=== PATIENT | female | born 1940 | race Caucasian/White ===

== ENCOUNTER → 2016-06-28 | Outpatient (CLI) | payer MEDICARE ==
--- NOTE | 2016-06-28 11:37 | US ---
EXAMINATION TYPE: US kidneys/renal and bladder DATE OF EXAM: 06/28/2016 11:16 AM COMPARISON: CT in pacs CLINICAL HISTORY: R94.4 Abn Results of kidney function studies. Abnormal results of kidney function s tudies, patient states no symptoms. EXAM MEASUREMENTS: Right Kidney: 8.4 x 3.7 x 4.1 cm Left Kidney: 8.4 x 4.8 x 4.0 cm Findings: Right Kidney: appears slightly small in size at 8.4cm Left Kidney: appears slightly small in size at 8.4cm, 0.2cm echogenic focus mid pole Bladder: limited visualization, not fully distended, appears wnl at seen Bilateral Jets seen: yes There is no evidence for hydronephrosis at this point in time. Nonobstructing calculus left kidney. N o masses are identified. The urinary bladder is anechoic. Bilateral ureteral jets are seen. IMPRESSION: 1. Mild renal atrophic change. 2. Nonobstructing calculus left kidney.
== END | disposition home or self-care (01) ==
LOC: RADUSWWP 10:52
PROVIDERS: ATTEND Family Medicine
DX: N20.0 Calculus of kidney (principal); N26.1 Atrophy of kidney (terminal)
CPT/HCPCS: 76770

== ENCOUNTER → 2017-01-03 | Outpatient (CLI) | payer MEDICARE ==
--- NOTE | 2017-01-04 11:50 | MM ---
Reason for exam: screening (asymptomatic). Last mammogram was performed 8 years and 6 months ago. History: Patient is postmenopausal. 3 excisional biopsies of the right breast. Physical Findings: A clinical breast exam by your physician is recommended on an annual basis and results should be correlated with mammographic findings. MG 3D Screening Mammo W/Cad Bilateral CC and MLO view(s) were taken. Prior study comparison: July 11, 2008, bilateral digital screening mammogram. December 07, 2006, bilateral screening mammogram w/CAD. The breast tissue is heterogeneously dense. This may lower the sensitivity of mammography. There is no discrete abnormality. ASSESSMENT: Negative, BI-RAD 1 RECOMMENDATION: Routine screening mammogram of both breasts in 1 year.
== END | disposition home or self-care (01) ==
LOC: RADMAMWWP 10:53
PROVIDERS: ATTEND Family Medicine
DX: Z12.31 Encounter for screening mammogram for malignant neoplasm of breast (principal)
CPT/HCPCS: 77063; G0202

== ENCOUNTER → 2018-05-15 | Outpatient (CLI) | payer MEDICARE ==
[2018-05-15 14:51] LABS: Basophils % (A) 1 %; Eosinophils # (A) 0.2 k/uL (0-0.7); Eosinophils % (A) 4 %; HGB 11.8 gm/dL (11.4-16.0); Lymphocytes # (A) 1.3 k/uL (1.0-4.8); Lymphocytes % (A) 23 %; MCH 28.4 pg (25.0-35.0); MCHC 31.8 g/dL (31.0-37.0); MCV 89.3 fL (80.0-100.0); Mean Platelet Volume 6.3; Monocytes # (A) 0.5 k/uL (0-1.0); Monocytes % (A) 9 %; Neutrophils # (A) 3.5 k/uL (1.3-7.7); Neutrophils % (A) 61 %; Platelet Count 314 k/uL (150-450); RBC 4.14 m/uL (3.80-5.40); RDW 13.1 % (11.5-15.5); WBC 5.7 k/uL (3.8-10.6)
[2018-05-15 15:01] LABS: Albumin 4.3 g/dL (3.5-5.0); Calcium 9.4 mg/dL (8.4-10.2); Potassium 4.3 mmol/L (3.5-5.1); Total Bilirubin 0.4 mg/dL (0.2-1.3); Total Protein 7.2 g/dL (6.3-8.2)
[2018-05-15 15:17] LABS: T4, Free (Free Thyroxine) 1.01 ng/dL (0.78-2.19)
--- NOTE | 2018-05-15 16:12 | BD ---
EXAMINATION TYPE: Axial Bone Density DATE OF EXAM: CLINICAL HISTORY: Height: 64 inches Weight: 138 FRAX RISK QUESTIONS: Alcohol (3 or more units per day): no Family History (Parent hip fracture): no Glucocorticoids (More than 3mos): no (Ex: prednisone, prednisolone, methylprednisolone, dexamethasone, and hydrocortisone). History of Fracture in Adulthood: yes Secondary Osteoporosis: 1. Type 1 Diabetes: no 2. Hyperthyroidism: no 3. Menopause before 45: yes 4. Malnutrition: no 5. Chronic liver disease: no Rheumatoid Arthritis: no Current Tobacco Use: no RISK FACTORS HISTORY OF: History of Wrist Fracture: yes When: about 6 years ago Surgery to Spine/Hip(right/left)/Wrist (right/left): no Family History of Osteoporosis: no Active: yes Diet low in dairy products/other sources of calcium: no Postmenopausal woman: yes Take estrogen and/or progesterone medications: no Lost more than 2 inches in height since high school: no Frequent falls: no Poor Health: no Hyperparathyroidism: no Adrenal Insufficiency: no MEDICATIONS: Prednisone or other steroids: no Thyroid Medications: no Osteoporosis Medications: yes Which medication: Prolia How Lon shots Additional Medications: calcium & Vitamin D Additional History: EXAM MEASUREMENTS: Bone mineral densitometry was performed using the SensorTran System. Bone mineral density as measured about the Lumbar spine is: ----- L1-L4(G/cm2): 1.000 T Score Values are as follows: ----- L2: -2.6 ----- L3: -1.1 ----- L4: -0.5 ----- L1-L4: -1.5 Bone mineral density has: Increased 3.4% since study of: 08/26/2015 Bone mineral density about the R hip (g/cm2): 0.639 Bone mineral density about the L hip (g/cm2): 0.657 T Score values are as follows: -----R Neck: -2.9 -----L Neck: -2.7 -----R Total: -2.1 -----L Total: -1.9 Bone mineral density has: Increased 2.7% since study of: 08/26/2015 IMPRESSION: Osteoporosis (T Score less than -2.5). There is increased fracture risk and therapy is usually indicated based on age. Re-Screen 1-2 years. NOTE: T-SCORE=SD OF THE YOUNG ADULT MEAN.
--- NOTE | 2018-05-16 09:52 | MM ---
Reason for exam: screening (asymptomatic). Last mammogram was performed 1 year and 4 months ago. History: Patient is postmenopausal. 3 excisional biopsies of the right breast. Physical Findings: A clinical breast exam by your physician is recommended on an annual basis and results should be correlated with mammographic findings. MG 3D Screening Mammo W/Cad Bilateral CC and MLO view(s) were taken. Prior study comparison: January 03, 2017, bilateral MG 3d screening mammo w/cad. July 11, 2008, bilateral digital screening mammogram. The breast tissue is heterogeneously dense. This may lower the sensitivity of mammography. There are benign appearing vascular calcifications bilaterally. There is no discrete abnormality. ASSESSMENT: Benign, BI-RAD 2 RECOMMENDATION: Routine screening mammogram of both breasts in 1 year.
== END | disposition home or self-care (01) ==
LOC: RADMAMWWP 13:40
PROVIDERS: ATTEND Family Medicine
DX: Z12.31 Encounter for screening mammogram for malignant neoplasm of breast (principal); M81.0 Age-related osteoporosis without current pathological fracture
CPT/HCPCS: 36415; 77063; 77067; 77080; 80053; 80061; 82306; 84439; 84443; 85025

== ENCOUNTER 2018-12-27 09:51 | Emergency (ER) | payer MEDICARE ==
--- NOTE | 2018-12-27 10:10 | ED ---
General Adult HPI - General Chief complaint: Arrhythmia/Palpitations Stated complaint: Palpitations Time Seen by Provider: 12/27/18 10:05 Source: patient, RN notes reviewed Mode of arrival: ambulatory Limitations: no limitations - History of Present Illness Initial comments: 78-year-old female with a past medical history of GERD, osteoporosis, hiatal he rnia presents to the emergency department for possible arrhythmia. Patient states that for the past few weeks she has had severe anxiety and impending doom mostly occurring at night. States this occurs for a few hours and then subsides. States last night it was really bad. States that because of these episodes she had a heart monitor on for about 5 days that was started last Sunday. Patient states she had an appointment with her doctor yesterday who notified her that her heart rate gets up to 186 during these episodes. Patient states the rhythm is "tachycardia." States that she has an appointment with Dr. Dominguez on Sunday. However because of the worsening symptoms last night this in creased anxiety and she came to the emergency department for further evaluation patient denies any shortness of breath or chest pain during these episodes. Denies diaphoresis. However does admit that she believes the anxiety is secondary to the arrhythmia..Patient has no other complaints at this time including shortness of breath, chest pain, abdominal pain, nausea or vomiting, headache, or visual changes. - Related Data Home Medications Medication Instructions Recorded Confirmed Aspirin [Adult Low Dose Aspirin EC] 81 mg PO HS 09/08/15 12/17/15 Calcium Carb-Vit D 500Mg-200Un 1 tab PO HS 09/08/15 12/17/15 [Oscal 500+D] FLUoxetine HCL [PROzac] 60 mg PO HS 09/08/15 12/17/15 Omeprazole 40 mg PO HS 09/08/15 12/17/15 Allergies Allergy/AdvReac Type Severity Reaction Status Date / Time No Known Allergies Allergy Verified 12/27/18 09:56 Review of Systems ROS Statement: Those systems with pertinent positive or pertinent negative responses have been documented in the HPI. ROS Other: All systems not noted in ROS Statement are negative. Past Medical History Past Medical History: GERD/Reflux Additional Past Medical History / Comment(s): varicose veins, osteoporosis, hiatal hernia, History of Any Multi-Drug Resistant Organisms: None Reported Past Surgical History: Breast Surgery, Cholecystectomy, Tonsillectomy Additional Past Surgical History / Comment(s): 3 cysts removed from rt breast , kana cataracts, detached retina-left eye Past Anesthesia/Blood Transfusion Reactions: Motion Sickness Past Psychological History: Depression Smoking Status: Former smoker Past Alcohol Use History: None Reported Past Drug Use History: None Reported - Past Family History Mother Family Medical History: Congestive Heart Failure (CHF), Coronary Artery Disease (CAD) Additional Family Medical History / Comment(s): anxiety Father Family Medical History: Memory Impairment Daughter(s) Family Medical History: Cancer (Leiomyosarcoma) General Exam Limitations: no limitations General appearance: alert, in no apparent distress Head exam: Present: atraumatic, normocephalic, normal inspection Eye exam: Present: normal appearance, PERRL, EOMI. Absent: scleral icterus, conjunctival injection ENT exam: Present: normal exam, mucous membranes moist Neck exam: Present: normal inspection, full ROM. Absent: tenderness, meningismus, lymphadenopathy Respiratory exam: Present: normal lung sounds bilaterally. Absent: respiratory distress, wheezes, rales, rhonchi, stridor Cardiovascular Exam: Present: regular rate, normal rhythm, normal heart sounds. Absent: systolic murmur, diastolic murmur, rubs, gallop, clicks GI/Abdominal exam: Present: soft, normal bowel sounds. Absent: distended, tenderness, guarding, rebound, rigid Neurological exam: Present: alert, oriented X3, CN II-XII intact Psychiatric exam: Present: normal affect, normal mood Course Vital Signs 12/27/18 12/27/18 09:56 10:37 Temperature 98.2 F Pulse Rate 51 L Pulse Rate [ 55 L Caser ] Respiratory 18 Rate Blood Pressure 132/62 O2 Sat by Pulse 98 Oximetry - Reevaluation(s) Reevaluation #1: 12/27/18 10:44 Attempting to get rhythm strips from Dr. Parisi's office EKG Findings - EKG Comments: EKG Findings:: Sinus bradycardia, ventricular rate 55, UT interval 156, QTC 420 Medical Decision Making - Medical Decision Making 78-year-old female presents to the emergency department for chief complaint of anxiety and abnormal Holter monitor. Patient states she was told she has a heart rate of 186 at times and has an appointment with liability claims representative on Sunday. On presentation patient is well-appearing. She does appear anxious however. V itals are stable. Heart rate in the 50s. CBC CMP unremarkable. Troponin negative. TSH is normal. Urine negative. EKG shows a sinus bradycardia with a ventricular rate of 55. I did obtain a Holter monitor results from a Dr. Parisi's office which showed about 2 runs of 5 beats of possible V. tach. Patient was put on propanolol last week for this. Case was discussed with Dr. Degroot who discussed the case with Dr Ledezma and recommend outpatient treatment with cards on sunday. Family is in agreement. Safety planning was made. Patient does have a way to check her heart rate at home. Patient return if she has any worsening symptoms and will follow up with her liability claims representative on Sunday at her scheduled appointment. - Lab Data Result diagrams: 12/27/18 10:45 12/27/18 10:45 Lab Results 12/27/18 12/27/18 12/27/18 Range/Units 10:45 10:45 10:45 WBC 6.5 (3.8-10.6) k/uL RBC 4.15 (3.80-5.40) m/uL Hgb 11.8 (11.4-16.0) gm/dL Hct 35.8 (34.0-46.0) % MCV 86.3 (80.0-100.0) fL MCH 28.3 (25.0-35.0) pg MCHC 32.8 (31.0-37.0) g/dL RDW 13.9 (11.5-15.5) % Plt Count 272 (150-450) k/uL Neutrophils % 71 % Lymphocytes % 18 % Monocytes % 8 % Eosinophils % 2 % Basophils % 0 % Neutrophils # 4.6 (1.3-7.7) k/uL Lymphocytes # 1.1 (1.0-4.8) k/uL Monocytes # 0.5 (0-1.0) k/uL Eosinophils # 0.1 (0-0.7) k/uL Basophils # 0.0 (0-0.2) k/uL PT 10.2 (9.0-12.0) sec INR 0.9 (<1.2) APTT 25.1 (22.0-30.0) sec Sodium 138 (137-145) mmol/L Potassium 4.3 (3.5-5.1) mmol/L Chloride 108 H (98-107) mmol/L Carbon Dioxide 21 L (22-30) mmol/L Anion Gap 9 mmol/L BUN 14 (7-17) mg/dL Creatinine 1.02 (0.52-1.04) mg/dL Est GFR (CKD-EPI)AfAm 62 (>60 ml/min/1.73 sqM) Est GFR (CKD-EPI)NonAf 54 (>60 ml/min/1.73 sqM) Glucose 99 (74-99) mg/dL Calcium 9.2 (8.4-10.2) mg/dL Magnesium 2.2 (1.6-2.3) mg/dL Total Bilirubin 0.5 (0.2-1.3) mg/dL AST 17 (14-36) U/L ALT 18 (9-52) U/L Alkaline Phosphatase 49 (38-126) U/L Troponin I (0.000-0.034) ng/mL Total Protein 6.6 (6.3-8.2) g/dL Albumin 4.0 (3.5-5.0) g/dL TSH 1.430 (0.465-4.680) mIU/L Urine Color Urine Appearance (Clear) Urine pH (5.0-8.0) Ur Specific Pony (1.001-1.035) Urine Protein (Negative) Urine Glucose (UA) (Negative) Urine Ketones (Negative) Urine Blood (Negative) Urine Nitrite (Negative) Urine Bilirubin (Negative) Urine Urobilinogen (<2.0) mg/dL Ur Leukocyte Esterase (Negative) 12/27/18 12/27/18 Range/Units 10:45 10:45 WBC (3.8-10.6) k/uL RBC (3.80-5.40) m/uL Hgb (11.4-16.0) gm/dL Hct (34.0-46.0) % MCV (80.0-100.0) fL MCH (25.0-35.0) pg MCHC (31.0-37.0) g/dL RDW (11.5-15.5) % Plt Count (150-450) k/uL Neutrophils % % Lymphocytes % % Monocytes % % Eosinophils % % Basophils % % Neutrophils # (1.3-7.7) k/uL Lymphocytes # (1.0-4.8) k/uL Monocytes # (0-1.0) k/uL Eosinophils # (0-0.7) k/uL Basophils # (0-0.2) k/uL PT (9.0-12.0) sec INR (<1.2) APTT (22.0-30.0) sec Sodium (137-145) mmol/L Potassium (3.5-5.1) mmol/L Chloride (98-107) mmol/L Carbon Dioxide (22-30) mmol/L Anion Gap mmol/L BUN (7-17) mg/dL Creatinine (0.52-1.04) mg/dL Est GFR (CKD-EPI)AfAm (>60 ml/min/1.73 sqM) Est GFR (CKD-EPI)NonAf (>60 ml/min/1.73 sqM) Glucose (74-99) mg/dL Calcium (8.4-10.2) mg/dL Magnesium (1.6-2.3) mg/dL Total Bilirubin (0.2-1.3) mg/dL AST (14-36) U/L ALT (9-52) U/L Alkaline Phosphatase (38-126) U/L Troponin I <0.012 (0.000-0.034) ng/mL Total Protein (6.3-8.2) g/dL Albumin (3.5-5.0) g/dL TSH (0.465-4.680) mIU/L Urine Color Yellow Urine Appearance Clear (Clear) Urine pH 7.0 (5.0-8.0) Ur Specific Pony 1.015 (1.001-1.035) Urine Protein Negative (Negative) Urine Glucose (UA) Negative (Negative) Urine Ketones Trace H (Negative) Urine Blood Negative (Negative) Urine Nitrite Negative (Negative) Urine Bilirubin Negative (Negative) Urine Urobilinogen <2.0 (<2.0) mg/dL Ur Leukocyte Esterase Negative (Negative) Disposition Clinical Impression: Palpitations Disposition: HOME SELF-CARE Condition: Good Instructions (If sedation given, give patient instructions): Heart Palpitations (ED) Additional Instructions: Please follow up with cardiology appointment on Sunday. Continue to take her medications as directed. If you have any worsening symptoms return to the emergency department. Is patient prescribed a controlled substance at d/c from ED?: No Referrals: Abel Parisi MD [Primary Care Provider] - 1-2 days Time of Disposition: 12:55
[2018-12-27] MEDS ORDERED: SODIUM CHLORIDE 0.9% 500 ML 500 ML IV STA (10:40)
[2018-12-27 10:59] LABS: Basophils % (A) 0 %; Eosinophils # (A) 0.1 k/uL (0-0.7); Eosinophils % (A) 2 %; HCT 35.8 % (34.0-46.0); HGB 11.8 gm/dL (11.4-16.0); Lymphocytes # (A) 1.1 k/uL (1.0-4.8); Lymphocytes % (A) 18 %; MCH 28.3 pg (25.0-35.0); MCHC 32.8 g/dL (31.0-37.0); MCV 86.3 fL (80.0-100.0); Mean Platelet Volume 7.1; Monocytes # (A) 0.5 k/uL (0-1.0); Monocytes % (A) 8 %; Neutrophils # (A) 4.6 k/uL (1.3-7.7); Neutrophils % (A) 71 %; Platelet Count 272 k/uL (150-450); RBC 4.15 m/uL (3.80-5.40); RDW 13.9 % (11.5-15.5); WBC 6.5 k/uL (3.8-10.6)
[2018-12-27 11:04] LABS: Appearance,Urine Clear (Clear); Bilirubin,Urine Negative (Negative); Blood,Urine Negative (Negative); Color,Urine Yellow; Glucose,Urine (UA) Negative (Negative); Ketones,Urine Trace (Negative); Leukocyte Esterase,Urine Negative (Negative); Nitrite,Urine Negative (Negative); Protein,Urine Negative (Negative); Specific Gravity,Urine 1.015 (1.001-1.035); Urobilinogen,Urine <2.0 mg/dL (<2.0)
[2018-12-27 11:08] LABS: INR 0.9 (<1.2); Partial Thromboplastin Time 25.1 sec (22.0-30.0); Prothrombin Time 10.2 sec (9.0-12.0)
--- NOTE | 2018-12-27 11:09 | XR ---
EXAMINATION TYPE: XR chest 2V DATE OF EXAM: 12/27/2018 COMPARISON: 06/29/2009 HISTORY: Dysrhythmia TECHNIQUE: Frontal and lateral views of the chest are obtained. FINDINGS: There is no focal air space opacity, pleural effusion, or pneumothorax seen. Lungs are hyp eraerated with increased retrosternal airspace indicate of underlying COPD. The cardiac silhouette si ze is within normal limits. The osseous structures are intact. Mild multilevel degenerative changes of thoracic spine are noted. There is diffuse osseous demineralization seen and is overall mild. IMPRESSION: No acute cardiopulmonary process.
[2018-12-27 11:14] LABS: Calcium 9.2 mg/dL (8.4-10.2); Magnesium 2.2 mg/dL (1.6-2.3); Potassium 4.3 mmol/L (3.5-5.1); Total Bilirubin 0.5 mg/dL (0.2-1.3); Total Protein 6.6 g/dL (6.3-8.2)
[2018-12-27 13:26] VITALS: RESP 18
[2018-12-27 13:29] VITALS: BP 126/68; PULSE 49
[2018-12-27 13:30] VITALS: TEMP 98.6
== END 2018-12-27 13:30 | disposition home or self-care (01) ==
LOC: EC 09:51
DX: R00.2 Palpitations (principal); F41.9 Anxiety disorder, unspecified; R00.1 Bradycardia, unspecified; K21.9 Gastro-esophageal reflux disease without esophagitis; F32.9 Major depressive disorder, single episode, unspecified; Z87.891 Personal history of nicotine dependence; Z79.82 Long term (current) use of aspirin; Z79.899 Other long term (current) drug therapy
CPT/HCPCS: 36415; 71046; 80053; 81003; 83735; 84443; 84484; 85025; 85610; 85730; 93005; 99285

== ENCOUNTER → 2018-12-30 | Outpatient (CLI) | payer MEDICARE ==
[2018-12-30 17:06] LABS: LDL Cholesterol,Calculated 136.6 mg/dL (0.0-131.0); VLDL Calculation 17.4 mg/dL (5.00-40.00)
== END | disposition home or self-care (01) ==
LOC: LABWHC1 09:39
PROVIDERS: ATTEND Physician Assistant
DX: E78.5 Hyperlipidemia, unspecified (principal)
CPT/HCPCS: 36415; 80061

== ENCOUNTER → 2019-02-04 | Outpatient (CLI) | payer MEDICARE ==
--- NOTE | 2019-02-05 07:43 | US ---
EXAMINATION TYPE: US kidneys/renal and bladder DATE OF EXAM: 02/04/2019 COMPARISON: US, CT CLINICAL HISTORY: N20.0 Kidney Stone. Nocturia per patient. EXAM MEASUREMENTS: Right Kidney: 8.7 x 3.7 x 3.7 cm Left Kidney: 9.2 x 5.0 x 4.5 cm Post Void Residual Volume: 10.4 mL Right Kidney: No hydronephrosis or masses seen Left Kidney: parallel hyperechoic lines seen in upper cortex relating to renal artery calcifications. Stable nonobstructing 2 mm left renal calculus. Bladder: wnl; hyperechoic focus is seen near the urethra (especially TRANSVERSE view), which may be c alcified bladder wall or urethral calcification. Bilateral Jets seen: not seen after 3 minute observation Normal Post Void Residual: yes Kidneys are slightly small in size. There is no evidence for hydronephrosis at this point in time. N o masses are identified. The urinary bladder is anechoic. IMPRESSION: 1. Stable nonobstructing 2 mm left renal calculus. No hydronephrosis or nephrolithiasis. 2. Renal arterial calcifications noted on the left and mild renal atrophy is seen on the prior. 3. Small calculus near the urethral orifice could represent a small bladder calcification or ureteral calcification (2 to 3 mm).
== END | disposition home or self-care (01) ==
LOC: RADUSWWP 15:23
PROVIDERS: ATTEND Family Medicine
DX: N20.0 Calculus of kidney (principal); N26.1 Atrophy of kidney (terminal); I70.1 Atherosclerosis of renal artery
CPT/HCPCS: 76770

== ENCOUNTER → 2019-02-19 | Outpatient (CLI) | payer MEDICARE ==
--- NOTE | 2019-02-19 15:44 | US ---
EXAMINATION TYPE: US renal artery duplex complete DATE OF EXAM: 02/19/2019 COMPARISON: NONE CLINICAL HISTORY: Atherosclerosis of Renal Artery K55.1. MEASUREMENTS: RENAL SIZE: Rt Kidney: 9.2 x 3.5 x 4.1cm Lt Kidney: 9.0 x 4.7 x 4.3 RESISTANCE INDEX Right: 0.64 Left: 0.66 RA/AO RATIO (< 3.5 ) Right: 1.4 Left: 1.4 RA VELOCITY ( < 180 cm/s) Right: 157 Left: 153 4.2 mm possible stones seen on left. No evidence of renal artery stenosis. IMPRESSION: No suspicious changes to suggest renal artery stenosis. 2. Nonobstructing left renal stone may be present
== END | disposition home or self-care (01) ==
LOC: RADUSWWP 07:57
PROVIDERS: ATTEND Family Medicine
DX: K55.1 Chronic vascular disorders of intestine (principal)
CPT/HCPCS: 93975

== ENCOUNTER → 2020-04-15 | Outpatient (CLI) | payer MEDICARE ==
--- NOTE | 2020-04-15 10:44 | US ---
EXAMINATION TYPE: US abdomen complete DATE OF EXAM: 04/15/2020 COMPARISON: CT 11/04/2015 CLINICAL HISTORY: R10.9 abdominal pain. RUQ pain since cholecystectomy 6yrs ago EXAM MEASUREMENTS: Liver Length: 12.8 cm Gallbladder Wall: Surgically absent CBD: 0.7 cm Spleen: 8.0 cm Right Kidney: 8.9 x 3.9 x 3.8 cm Left Kidney: 8.6 x 4.1 x 4.5 cm Pancreas: wnl Liver: There is an echogenic focus consistent with hemangioma seen right posterior lobe 2.2cm as not ed on prior CT Gallbladder: Surgically absent Evidence for sonographic Mcgrath's sign: no CBD: Within normal limits for patient's age and postcholecystectomy change Spleen: wnl Right Kidney: small in size Left Kidney: small in size Upper IVC: wnl Abd Aorta: wnl There is no ascites. Kidneys show normal cortical medullary differentiation. IMPRESSION: Postcholecystectomy change. Findings consistent with hemangioma right lobe of liver poste riorly.
== END | disposition home or self-care (01) ==
LOC: RADUSWWP 07:33
PROVIDERS: ATTEND Family Medicine
DX: R10.9 Unspecified abdominal pain (principal); Z90.49 Acquired absence of other specified parts of digestive tract
CPT/HCPCS: 76700

== ENCOUNTER → 2020-09-15 | Outpatient (CLI) | payer MEDICARE ==
--- NOTE | 2020-09-15 08:54 | CT ---
EXAMINATION TYPE: CT brain wo con DATE OF EXAM: 09/15/2020 HISTORY: Change in memory, amnesia. CT DLP: 1054.2 mGycm. Automated Exposure Control for Dose Reduction was Utilized. TECHNIQUE: CT scan of the head is performed without contrast. COMPARISON: None. FINDINGS: There is no acute intracranial hemorrhage or midline shift identified. There is mild diff use ventricular and sulcal prominence consistent with diffuse age-related cerebral atrophy. Findings greatest over bilateral frontal and temporal lobes. There is more moderate scattered areas low-atten uation in the predominantly deep white matter. Findings most likely product of chronic small vessel i schemic change inpatient of this age. Small caliber left sphenoid sinus with mild to moderate mucosal thickening. The globes are intact and the visualized sinuses otherwise are clear. IMPRESSION: No acute intracranial hemorrhage or midline shift. There is mild diffuse cerebral atrop hy greatest over bilateral frontal and temporal lobes and moderate scattered nonspecific white matter changes favored on basis of product of chronic small vessel ischemic change in patient of this age.
== END | disposition home or self-care (01) ==
LOC: RADCTMAIN 08:24
PROVIDERS: ATTEND Family Medicine
DX: I67.82 Cerebral ischemia (principal); G31.9 Degenerative disease of nervous system, unspecified
CPT/HCPCS: 70450

== ENCOUNTER 2021-06-01 10:10 | Emergency (ER) | payer MEDICARE ==
[2021-06-01 10:14] VITALS: TEMP 97
[2021-06-01 10:32] VITALS: BP 143/72
--- NOTE | 2021-06-01 11:22 | ED ---
General Adult HPI - General Chief complaint: Recheck/Abnormal Lab/Rx Stated complaint: Abnormal EKG Time Seen by Provider: 06/01/21 10:15 Source: patient Mode of arrival: ambulatory Limitations: no limitations - History of Present Illness Initial comments: 80-year-old female with past medical history of reflux presents to the emergency department with reported chest pain. States that she began having some pressure in her chest when she went to sleep over the past 2 nights. States that she wakes in the morning and the pain is gone. Symptoms lasted only 30 minutes. Denies any associated nausea, vomiting or diaphoresis. No shortness of breath. No cough, fevers or chills. No history of coronary disease. States that she had a stress test and echo approximately 2 years ago and had a clean bill of health. She went to her primary care doctor. They performed an EKG which they felt was normal however felt that she still needed some blood work. She arrives and states that she has no current chest pain at this time. No other alleviating, precipitating or modifying factors - Related Data Home Medications Medication Instructions Recorded Confirmed Ibuprofen [Motrin Ib] 400 mg PO Q8H PRN 01/23/20 06/01/21 Denosumab [Prolia] 60 mg SQ Q180D 06/01/21 06/01/21 FLUoxetine HCL 40 mg PO HS 06/01/21 06/01/21 busPIRone HCL [Buspar] 30 mg PO BID 06/01/21 06/01/21 Allergies Allergy/AdvReac Type Severity Reaction Status Date / Time No Known Allergies Allergy Verified 06/01/21 12:02 Review of Systems ROS Statement: Those systems with pertinent positive or pertinent negative responses have been documented in the HPI. ROS Other: All systems not noted in ROS Statement are negative. Past Medical History Past Medical History: GERD/Reflux Additional Past Medical History / Comment(s): varicose veins, osteoporosis, hiatal hernia, possible memory issues, blood in stool few weeks ago x1 History of Any Multi-Drug Resistant Organisms: None Reported Past Surgical History: Breast Surgery, Cholecystectomy, Tonsillectomy Additional Past Surgical History / Comment(s): 3 cysts removed from rt breast, colonoscopy, hysteroscopy/D&C Past Anesthesia/Blood Transfusion Reactions: No Reported Reaction Past Psychological History: Anxiety, Depression Smoking Status: Former smoker Past Alcohol Use History: None Reported Past Drug Use History: None Reported - Past Family History Mother Family Medical History: Congestive Heart Failure (CHF), Coronary Artery Disease (CAD) Additional Family Medical History / Comment(s): anxiety Father Family Medical History: Memory Impairment Daughter(s) Family Medical History: Cancer General Exam Limitations: no limitations General appearance: alert, in no apparent distress Head exam: Present: atraumatic, normocephalic, normal inspection Eye exam: Present: normal appearance, PERRL, EOMI. Absent: scleral icterus, conjunctival injection, periorbital swelling ENT exam: Present: normal exam, mucous membranes moist Neck exam: Present: normal inspection. Absent: tenderness, meningismus, lymphadenopathy Respiratory exam: Present: normal lung sounds bilaterally. Absent: respiratory distress, wheezes, rales, rhonchi, stridor Cardiovascular Exam: Present: regular rate, normal rhythm, normal heart sounds. Absent: systolic murmur, diastolic murmur, rubs, gallop, clicks GI/Abdominal exam: Present: soft, normal bowel sounds. Absent: distended, tenderness, guarding, rebound, rigid Extremities exam: Present: normal inspection, full ROM, normal capillary refill. Absent: tenderness, pedal edema, joint swelling, calf tenderness Back exam: Present: normal inspection Neurological exam: Present: alert, oriented X3, CN II-XII intact Psychiatric exam: Present: normal affect, normal mood Skin exam: Present: warm, dry, intact, normal color. Absent: rash Course Vital Signs 06/01/21 06/01/21 06/01/21 10:11 10:31 13:20 Temperature 97 F L Pulse Rate 67 60 56 L Respiratory 18 16 18 Rate Blood Pressure 158/90 143/72 143/72 O2 Sat by Pulse 98 99 98 Oximetry EKG Findings - EKG Comments: EKG Findings:: EKG done at 1024 demonstrates a normal sinus rhythm with a ventricular rate of 60. HI interval 144. QRS 82. QTC of 408. No acute ST segment elevations or depressions Medical Decision Making - Medical Decision Making Upon arrival patient placed into room 2. History and physical exam is performed. I did review the EKG from Dr. Parisi's lab. Repeat 12-lead was performed which demonstrates no acute ST segment elevation or depression. IV is established and laboratory studies are conducted. Patient is continued on the shelter monitor. Laboratory studies reveal a negative troponin level. BNP 293. Chest x-ray demonstrates no evidence of acute cardiopulmonary disease. This is discussed with the patient. Did recommend admission for cardiology consultation, trend her troponins and get an echo however the patient refused. She is aware of the risks of leaving without further workup. Daughter is at bedside. Patient is capable of making her own decisions. I informed her that she is to follow-up with her primary care doctor and have a stress test and echo performed. Return to the emergency department for any new or worsening symptoms. Patient agreed to this plan and was discharged home in stable condition - Lab Data Result diagrams: 06/01/21 11:15 06/01/21 11:15 Lab Results 06/01/21 06/01/21 06/01/21 Range/Units 11:15 11:15 11:15 WBC 6.1 (3.8-10.6) k/uL RBC 4.38 (3.80-5.40) m/uL Hgb 12.5 (11.4-16.0) gm/dL Hct 39.4 (34.0-46.0) % MCV 89.8 (80.0-100.0) fL MCH 28.5 (25.0-35.0) pg MCHC 31.7 (31.0-37.0) g/dL RDW 13.0 (11.5-15.5) % Plt Count 323 (150-450) k/uL MPV 7.1 Neutrophils % 67 % Lymphocytes % 21 % Monocytes % 8 % Eosinophils % 2 % Basophils % 1 % Neutrophils # 4.1 (1.3-7.7) k/uL Lymphocytes # 1.3 (1.0-4.8) k/uL Monocytes # 0.5 (0-1.0) k/uL Eosinophils # 0.1 (0-0.7) k/uL Basophils # 0.0 (0-0.2) k/uL PT 9.5 (9.0-12.0) sec INR 0.9 (<1.2) APTT 23.5 (22.0-30.0) sec Sodium 136 L (137-145) mmol/L Potassium 5.2 H (3.5-5.1) mmol/L Chloride 107 (98-107) mmol/L Carbon Dioxide 21 L (22-30) mmol/L Anion Gap 8 mmol/L BUN 19 H (7-17) mg/dL Creatinine 1.08 H (0.52-1.04) mg/dL Est GFR (CKD-EPI)AfAm 57 (>60 ml/min/1.73 sqM) Est GFR (CKD-EPI)NonAf 49 (>60 ml/min/1.73 sqM) Glucose 101 H (74-99) mg/dL Calcium 9.2 (8.4-10.2) mg/dL Magnesium 2.2 (1.6-2.3) mg/dL Total Bilirubin 0.4 (0.2-1.3) mg/dL AST 26 (14-36) U/L ALT 13 (4-34) U/L Alkaline Phosphatase 63 (38-126) U/L Troponin I (0.000-0.034) ng/mL NT-Pro-B Natriuret Pep pg/mL Total Protein 7.3 (6.3-8.2) g/dL Albumin 4.3 (3.5-5.0) g/dL Lipase 188 (23-300) U/L 06/01/21 06/01/21 Range/Units 11:15 11:15 WBC (3.8-10.6) k/uL RBC (3.80-5.40) m/uL Hgb (11.4-16.0) gm/dL Hct (34.0-46.0) % MCV (80.0-100.0) fL MCH (25.0-35.0) pg MCHC (31.0-37.0) g/dL RDW (11.5-15.5) % Plt Count (150-450) k/uL MPV Neutrophils % % Lymphocytes % % Monocytes % % Eosinophils % % Basophils % % Neutrophils # (1.3-7.7) k/uL Lymphocytes # (1.0-4.8) k/uL Monocytes # (0-1.0) k/uL Eosinophils # (0-0.7) k/uL Basophils # (0-0.2) k/uL PT (9.0-12.0) sec INR (<1.2) APTT (22.0-30.0) sec Sodium (137-145) mmol/L Potassium (3.5-5.1) mmol/L Chloride (98-107) mmol/L Carbon Dioxide (22-30) mmol/L Anion Gap mmol/L BUN (7-17) mg/dL Creatinine (0.52-1.04) mg/dL Est GFR (CKD-EPI)AfAm (>60 ml/min/1.73 sqM) Est GFR (CKD-EPI)NonAf (>60 ml/min/1.73 sqM) Glucose (74-99) mg/dL Calcium (8.4-10.2) mg/dL Magnesium (1.6-2.3) mg/dL Total Bilirubin (0.2-1.3) mg/dL AST (14-36) U/L ALT (4-34) U/L Alkaline Phosphatase (38-126) U/L Troponin I <0.012 (0.000-0.034) ng/mL NT-Pro-B Natriuret Pep 293 pg/mL Total Protein (6.3-8.2) g/dL Albumin (3.5-5.0) g/dL Lipase (23-300) U/L Disposition Clinical Impression: Chest pain Disposition: HOME SELF-CARE Condition: Stable Instructions (If sedation given, give patient instructions): Chest Pain (ED) Additional Instructions: Please follow-up with your primary care doctor in 2-4 days. I did recommend hospital admission. You need to have a full cardiac workup to include an echo and stress test. Please return for any new or worsening symptoms or should you agree to hospital admission Is patient prescribed a controlled substance at d/c from ED?: No Referrals: Abel Parisi MD [Primary Care Provider] - 1-2 days Time of Disposition: 12:51
--- NOTE | 2021-06-01 11:27 | XR ---
EXAMINATION TYPE: XR chest 2V DATE OF EXAM: 06/01/2021 COMPARISON: 12/27/18 HISTORY: Shortness of breath TECHNIQUE: Frontal and lateral views of the chest are obtained. FINDINGS: Scattered senescent parenchymal changes noted. Hyperinflation compatible with COPD. No evidence for infiltrate. No evidence for atelectasis. Heart size is stable. Mediastinal structures are stable and grossly unremarkable. No evidence for hilar prominence. Degenerative changes dorsal spine. IMPRESSION: 1. No evidence for acute pulmonary disease.
[2021-06-01 11:35] LABS: Basophils % (A) 1 %; Eosinophils # (A) 0.1 k/uL (0-0.7); Eosinophils % (A) 2 %; HCT 39.4 % (34.0-46.0); HGB 12.5 gm/dL (11.4-16.0); Lymphocytes # (A) 1.3 k/uL (1.0-4.8); Lymphocytes % (A) 21 %; MCH 28.5 pg (25.0-35.0); MCHC 31.7 g/dL (31.0-37.0); MCV 89.8 fL (80.0-100.0); Mean Platelet Volume 7.1; Monocytes # (A) 0.5 k/uL (0-1.0); Monocytes % (A) 8 %; Neutrophils # (A) 4.1 k/uL (1.3-7.7); Neutrophils % (A) 67 %; Platelet Count 323 k/uL (150-450); RBC 4.38 m/uL (3.80-5.40); WBC 6.1 k/uL (3.8-10.6)
[2021-06-01 11:47] LABS: Albumin 4.3 g/dL (3.5-5.0); Calcium 9.2 mg/dL (8.4-10.2); Magnesium 2.2 mg/dL (1.6-2.3); Potassium 5.2 mmol/L (3.5-5.1); Total Bilirubin 0.4 mg/dL (0.2-1.3); Total Protein 7.3 g/dL (6.3-8.2)
[2021-06-01 11:52] LABS: INR 0.9 (<1.2); Partial Thromboplastin Time 23.5 sec (22.0-30.0); Prothrombin Time 9.5 sec (9.0-12.0)
[2021-06-01 13:21] VITALS: PULSE 56; RESP 18
== END 2021-06-01 13:32 | disposition home or self-care (01) ==
LOC: EC 10:10
DX: R07.9 Chest pain, unspecified (principal); K21.9 Gastro-esophageal reflux disease without esophagitis; M81.0 Age-related osteoporosis without current pathological fracture; F41.9 Anxiety disorder, unspecified; F32.A Depression, unspecified; Z90.49 Acquired absence of other specified parts of digestive tract; Z87.891 Personal history of nicotine dependence
CPT/HCPCS: 36415; 71046; 80053; 83690; 83735; 83880; 84484; 85025; 85610; 85730; 93005; 99285

== ENCOUNTER → 2021-08-09 | Outpatient (CLI) | payer MEDICARE ==
--- NOTE | 2021-08-09 12:57 | MR ---
EXAMINATION TYPE: MR brain wo/w con DATE OF EXAM: 08/09/2021 COMPARISON: CT brain 09/15/2020 HISTORY: R41.3 Memory loss, lack of reflexes TECHNIQUE: Multiplanar, multisequence images of the brain and brainstem is performed without and with IV contras t, utilizing 6.5 mL intravenous Gadavist . FINDINGS: Diffusion weighted images demonstrate no evidence of a recent infarct or other diffusion ab normality. There is no extra-axial fluid collection, scattered and confluent hyperintensities presen t on inversion recovery, T2-weighted sequences within the subcortical, periventricular white matter, approximately 50 lesions are present. The largest lesion in the left frontal lobe image 20 measures approximately 12 to 13 mm. The ventricular system and cisternal spaces are normal in size and appeara nce. The brain volume is age appropriate. Midline structures demonstrate normal morphology. The craniocervical junction appears within normal limits. Post contrast images demonstrate no abnormal enhancement. The dural venous sinuses appear pa tent. The visualized sinuses are showing some mucosal disease in the ethmoid air cells, sphenoid sinu s on the left, and the globes are intact. Inflammatory changes also present in the mastoid air cells on the right IMPRESSION: Nonspecific white matter demyelination, age related atrophy, sinus disease as described
--- NOTE | 2021-08-09 13:13 | MR ---
EXAMINATION TYPE: MR cervical spine wo con DATE OF EXAM: 08/09/2021 COMPARISON: None HISTORY: R41.3 Memory loss, lack of reflexes TECHNIQUE: Multiplanar, multisequence images of the cervical spine were acquired without contrast. C2-C3: There is some foraminal encroachment due to joint hypertrophy and facet arthropathy bilaterall y, no spinal stenosis or disc herniation C3-C4: Posterior broad-based disc bulge, extension of endplate disc complex effaces the anterior thec al sac. Bilateral uncovertebral joint hypertrophy results in bilateral foraminal encroachment. No sig nificant spinal stenosis. C4-C5: Posterior extension endplate disc complex may contact the anterior cervical cord. Uncovertebra l joint hypertrophy and facet arthropathy results in bilateral foraminal encroachment. No significant spinal stenosis. C5-C6: Posterior extension endplate disc complex contacts the anterior cervical cord there is mild to moderate spinal stenosis. Bilateral foraminal encroachment is present due to uncovertebral joint hyp ertrophy and facet arthropathy left greater than right. C6-C7: Posterior disc bulge causes anterior mass effect on the thecal sac but only mild spinal stenos is. There is left-sided greater than right foraminal encroachment. C7-T1: No evidence for degenerative disc disease. No disc bulge/herniation or protrusion. No Canal stenosis. Foramina are patent bilaterally. Cervical segments are intact. There is near-anatomic alignment. Cervical spinal cord is of normal s ignal. Craniovertebral junction relationships are within normal limits. There is multilevel spondyl osis. Cervical vertebral bodies show preserved height. Minimal retrolisthesis grade 1 present at 5-6. There is loss of disc height and signal at intervertebral levels C4-5 and C5-6, endplate discogenic marrow signal change consistent with disc desiccation and degenerative disc disease. There is a spina l curvature noted incidentally. IMPRESSION: Multilevel foraminal encroachment, degenerative disc disease, spinal stenosis as described.
== END | disposition home or self-care (01) ==
LOC: RADMRIMAIN 09:19
PROVIDERS: ATTEND Psychiatry & Neurology Neurology
DX: M48.02 Spinal stenosis, cervical region (principal); M50.322 Other cervical disc degeneration at C5-C6 level; G37.8 Other specified demyelinating diseases of central nervous system; G31.89 Other specified degenerative diseases of nervous system; J32.9 Chronic sinusitis, unspecified
CPT/HCPCS: 70553; 72141; A9585